=== PATIENT | male | born 1980 | race Caucasian/White ===

== ENCOUNTER 2017-02-02 21:00 | Inpatient (IN) | payer MEDICAID, OTHER ==
[2017-02-02 22:17] LABS: BASO % 0.1 % (0.0-2.0); EOS % 0.1 % (0.0-4.0); HEMATOCRIT 41.7 % (35.0-51.0); LYMPH # 0.7 K/uL (1.0-4.3); LYMPH % 11.7 % (20.0-40.0); MEAN CELL VOLUME 88.8 fl (80.0-94.0); MEAN CORPUSCULAR HEMOGLOBIN 30.5 pg (27.0-31.0); MEAN CORPUSCULAR HGB CONC 34.3 g/dL (33.0-37.0); MONO # 0.5 K/uL (0.0-0.8); MONO % 7.4 % (0.0-10.0); NEUT % 80.7 % (50.0-75.0); NRBC % 0.2 % (0.0-0.0); RED CELL DISTRIBUTION WIDTH 13.3 % (11.5-14.5); WHITE BLOOD COUNT 6.1 K/uL (4.8-10.8)
[2017-02-02 22:28] LABS: ALB/GLOB RATIO 1.4 (1.0-2.1); ALCOHOL SERUM < 10 mg/dl (0-10); ALKALINE PHOSPHATASE 112 U/L (38-126); ALT/SGPT 134 U/L (21-72); AST/SGOT 199 U/L (17-59); BILIRUBIN,TOTAL 0.8 mg/dl (0.2-1.3); BLOOD UREA NITROGEN 11 mg/dl (9-20); CALCIUM 8.9 mg/dL (8.4-10.2); CARBON DIOXIDE 26 mmol/L (22-30); CHLORIDE 102 mmol/L (98-107); GFR AFRICAN-AMERICAN > 60; GLUCOSE,RANDOM 120 mg/dL (75-110); POTASSIUM 3.7 MMOL/L (3.6-5.0); SODIUM 144 mmol/l (132-148); TOTAL PROTEIN 7.7 G/DL (6.3-8.2)
--- NOTE | 2017-02-02 22:50 | ED PDOC ---
HPI: Psych/Substance Abuse Time Seen by Provider: 02/02/17 21:07 Chief Complaint (Nursing): Psychiatric Evaluation Chief Complaint (Provider): Auditory Hallucinations and Headache History Per: Patient History/Exam Limitations: no limitations Onset/Duration Of Symptoms: Days (x1 week) Current Symptoms Are (Timing): Still Present Associated Symptoms: denies: Suicidal Thoughts, Suicidal Plan Additional Complaint(s): Coleman Neal , a 36 year old male, with a past medical history of possible psychotic disorder presents to the ED complaining of auditory hallucinations and headache x1 week. The patient states that for the past week he has been hearing male voices saying that they are going to kill him but he denies homicidal and suicidal ideation. Patient admits to consuming one beer today but denies drug use. He reports that he was admitted to [facility] for similar presentations and did not follow up with a psychiatrist. Past Medical History Reviewed: Historical Data, Nursing Documentation, Vital Signs Vital Signs: Last Vital Signs Temp 100 F H 02/02/17 21:01 Pulse 124 H 02/02/17 21:01 Resp 20 02/02/17 21:01 BP 175/110 H 02/02/17 21:01 Pulse Ox 96 02/02/17 21:01 - Medical History Other PMH: Possible Psychotic Disorder - Surgical History Other surgeries: left rib surgery - Family History Family History: States: Unknown Family Hx - Social History Current smoker - smoking cessation education provided: No Alcohol: Occasional Drugs: Denies - Allergies Allergies/Adverse Reactions: Allergies Allergy/AdvReac Type Severity Reaction Status Date / Time No Known Allergies Allergy Verified 02/02/17 21:01 Review of Systems Psych: Positive for: Other (Auditory hallucinations). Negative for: Suicidal ideation Physical Exam - Reviewed Nursing Documentation Reviewed: Yes Vital Signs Reviewed: Yes - Physical Exam Appears: Positive for: Non-toxic, No Acute Distress Head Exam: Positive for: ATRAUMATIC, NORMAL INSPECTION, NORMOCEPHALIC Skin: Positive for: Normal Color, Warm, Dry. Negative for: Rash Eye Exam: Positive for: Normal appearance, EOMI, PERRL. Negative for: Nystagmus ENT: Positive for: Normal ENT Inspection. Negative for: Nasal Congestion, Tonsillar Exudate Neck: Positive for: Normal, Painless ROM, Supple Cardiovascular/Chest: Positive for: Regular Rate, Rhythm, Chest Non Tender. Negative for: Tachycardia Respiratory: Positive for: Normal Breath Sounds. Negative for: Wheezing, Respiratory Distress Gastrointestinal/Abdominal: Positive for: Normal Exam, Bowel Sounds, Soft. Negative for: Tenderness, Guarding, Rebound Back: Positive for: Normal Inspection. Negative for: L CVA Tenderness, R CVA Tenderness Extremity: Positive for: Normal ROM. Negative for: Tenderness, Deformity, Swelling Neurologic/Psych: Positive for: Alert, Oriented, Mood/Affect (Internally Preoccupied) - Laboratory Results Result Diagrams: 02/02/17 22:12 02/02/17 22:12 - ECG O2 Sat by Pulse Oximetry: 96 (RA) Pulse Ox Interpretation: Normal Medical Decision Making Medical Decision Makin Initial Impression: 36 y/o male presenting with auditory hallucinations in setting of possible psychotic break Initial Plan: * CT Head w/o Contrast * EKG * Alcohol Serum * CMP * Drug Screen * Crisis Evaluation * Udip * CBC * Ativan 2mg IM * Librium 50mg PO * 1:1 Observation * Reevaluation Time: 23:10 Clinical Impression: Psychotic disorder with alcohol dependence --Labs were viewed with no clinically significant findings. --Ativan 2mg IM ordered --Evaluated by crisis and will be admitted for further treatment --Patient is medically stable for psychiatric admission under Dr. Maldonado CT HEAD FINDINGS: Brain: Tiny calcification in the left basal ganglia.Streak artifact limits evaluation of the skull base. No evidence of acute intracranial hemorrhage. Correlate clinically. No significant white matter disease. No edema.Mild bifrontal atrophy is noted. Ventricles: Unremarkable. No ventriculomegaly. Bones/joints: See above. Soft tissues: Unremarkable. Sinuses: Unremarkable as visualized. No acute sinusitis. Mastoid air cells: Unremarkable as visualized. No mastoid effusion. IMPRESSION: Streak artifact limits evaluation of the skull base. No evidence of acute intracranial hemorrhage. Correlate clinically. Time: 22:35 --Chest XR shows no acute disease. Scribe Attestation Documented by Soha Pryor and Ambrocio Stout, acting as a scribe for Daisy Palencia MD. Provider Attestation All medical record entries made by the Scribe were at my direction and personally dictated by me. I have reviewed the chart and agree that the record accurately reflects my personal performance of the history, physical exam, medical decision making, and the department course for this patient. I have also personally directed, reviewed, and agree with the discharge instructions and disposition. Disposition - Clinical Impression Clinical Impression: Psychotic disorder, Alcohol dependence - Patient ED Disposition Is Patient to be Admitted: Yes - Disposition Disposition: Discharged to Psych Hospital Disposition Time: 22:39 Condition: STABLE - Pt Status Changed To: Hospital Disposition Of: Inpatient - Admit Certification Admit to Inpatient:: After my assessment, the patient will require hospitalization for at least two midnights. This is because of the severity of symptoms shown, intensity of services needed, and/or the medical risk in this patient being treated as an outpatient. - POA Present On Arrival: None
[2017-02-03 00:54] VITALS: O2SAT 98
[2017-02-03] MEDS ORDERED: Alum-Mag Hydrox-Simethicone Susp (30 mL) PO PRN (01:43)
[2017-02-03] MEDS ORDERED: Magnesium Hydroxide Susp 30 ml UD PO PRN (01:43)
[2017-02-03] MEDS ORDERED: DiphenhydrAMINE 50 mg/ml Inj IM PRN (01:43)
--- NOTE | 2017-02-03 02:53 | PCM.BM ---
<Aldo Deleon J - Last Filed: 02/03/17 02:50> Treatment Plan Problems - Problems identified on initial assessmt Knowledge Deficit: Alcohol Use Date Initiated: 02/03/17 Time Initiated: 02:51 Assessment reference: NA Status: Active Treatment assets and liabiliti Patient Assests: cooperative, motivated, physically healthy, negotiates basic needs Patient Liabilities: poor support system, substance abuse, language/speech ( speaks only Burkinan and has first grade education. Poor read/write) - Milieu Protocol Maintain good personal hygiene: daily Remind patient to perform daily oral care , every other day Encourage regular showers, other Assist patient to perform ADL 's (if needed) Conduct patient checks and document Observation sheet: Q15 minutes Maintain personal safety: every shift Educate patient to report safety concerns to staff, every shift Monitor environment for contraband/sharps Medication safety: Monitor for expected outcome, potential side effects: every shift, Assess barriers to learning: every shift, Assess readiness for medication education: every shift <Kathrin Maldonado - Last Filed: 02/03/17 11:10> - Diagnosis (1) Psychotic disorder Status: Acute Interventions: Medication management, Individual and group therapy, Psychoeducation 02/03/17 11:10 (2) Alcohol dependence Status: Acute Interventions: Medication management, Individual and group therapy, Psychoeducation 02/03/17 11:11 <Bharti Castellanos - Last Filed: 02/07/17 12:00> Treatment assets and liabiliti Patient Assests: adapts well, cooperative, motivated, self-reliant, ADL independent, physically healthy, negotiates basic needs, cognitively intact, good interpersonal skills Patient Liabilities: live alone, substance abuse Family Contact Family involvement: Family/SO is involved Family contact: Patient agrees to contact, Family has been contacted by patient , Telephone contact initiated by staff Family contact name: Amber(daughter)([phone]) Family contacted how many times per week?: 1 Family contact comment: [employer] Knitting Machine Operator placed call to patients daughter to discuss patients progress on 3NP, anticipated discharge of 02/07 and aftercare. Patients daughter denies having seen patient in the condition he was in prior to admission. Patients daughter reports patient struggles with his ETOH intake and depression but denies knowing of prior psychotic episodes. [employer] Knitting Machine Operator provided psychoeducation regarding importance of compliance with aftercare to reduce risk of future hospitalizations and ensure saftey in the community. Patients daughter expressed understanding of the above and denied concerns regardig discharge or patients return home. - Outside Agency Agency 1 Care involvment: Other Agency contact name: [facility]/ [facility] Orestes Pizano Agency contact number: [phone] - Goals for Treatment Patient goals for treatment: Patient to continue stabilization on 3NP through medication management and group/supportive therapy. Patient encouraged to attend group regularly to promote self-awareness, sobriety and improve insight, coping skills and self-esteem. Psychoeducation provided to emphasize importance of compliance with aftercare/medication management to reduce risk of future hospitalizations and ensure max. functioning in the community. Discharge/Continuing Care - Education Needs Education Needs: Family Medication, Family Diagnosis/Disease Process, Family Coping Skills, Family Community resources, Family Aftercare Safety Plan, Patient Medication, Patient Diagnosis/Disease Process, Patient Coping Skills, Patient Community resources, Patient Aftercare Safety Plan - Discharge Discharge Criteria: Tolerates medication w/o severe side effects, Free of Suicidal thoughts, Free of paranoid thoughts, Free of agitation, Normal sleep pattern, Ability to care for self, No longer exhibiting s/s of withdrawal Discharge to:: Home, Other - Treatment Team Participation Patient/Family/SO Statement: 02/07/17 11:59 Patient reports improvement in mood since admission and denies AH/VH or SI/HI since admission. Patient expresses motivation for treatment upon discharge in order to reduce risk of future hospitalizations and maintain sobriety. Patient presents with brighter affect than upon admission. No harmful behaviors noted. Discussed with Family/SO: Yes
--- NOTE | 2017-02-03 08:37 | CT ---
PROCEDURE: CT HEAD WITHOUT CONTRAST. HISTORY: headache COMPARISON: None available. TECHNIQUE: Axial computed tomography images were obtained through the head/brain without intravenous contrast. Radiation dose: Total exam DLP = 812.72 mGy-cm. This CT exam was performed using one or more of the following dose reduction techniques: Automated exposure control, adjustment of the mA and/or kV according to patient size, and/or use of iterative reconstruction technique. FINDINGS: HEMORRHAGE: No intracranial hemorrhage. BRAIN: Normal zurita-white matter differentiation and density are appreciated throughout the cerebrum cerebellum and brainstem. There is no mass effect. There is no suspicious extra-axial fluid collection in the midline brain anatomy appears diffusely unremarkable. VENTRICLES: Unremarkable. No hydrocephalus. CALVARIUM: Unremarkable. PARANASAL SINUSES: Unremarkable as visualized. No significant inflammatory changes. MASTOID AIR CELLS: Unremarkable as visualized. No inflammatory changes. OTHER FINDINGS: None. IMPRESSION: Normal CT of the Head. Concordant report from [facility], 02/02/2017.
--- NOTE | 2017-02-03 11:13 | PCM.PSYCH ---
Initial Psychiatric Evaluation - Initial Psychiatric Evaluation Type of Admission: Voluntary Legal Status: Capacity Chief Complaint (in patient's own words): "I'm hearing voices saying they will kill me." Patient's Reaction to Hospitalization: HPI: 36 yo male w/ no known past medical history presents with worsening psychosis and bizarre behavior. Patient is a poor historian due to acute psychosis and disorganization, but he does reports that he is hearing voices stating that they will kill him. He denies suicidal or homicidal ideation. He also reports paranoia that people are after him, trying to watch him through the door and windows. He denies current depression/anxiety. A + O x 3. Patient reports that he drinks, but was vague about how much and stated that he does not drink etoh daily. He denies current tremors. Collateral from ER: Clinician contacted the patients daughter Amber Cee [phone] who reported that a few days the patient went to [facility], stayed in the ED and was discharged. That patient is not eating nor sleeping at least for a week. He appeared confused, complaining of headaches, ear aches, and voices. The voices is telling him that they will kill him. He sees people in the room that nobody can see. That he wants to run away from the voices because he is fearful that they going to hurt him. He reported drinking a large cane of beer today and sueros electrolytes drinks. His last alcohol binge was three days ago. She advocates for his father to be hospitalized and treated. She denied any psychiatric disorder in the family in [facility] or in [facility]. 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 Denies illicit drug use, +ETOH use. Current Medications: Active Medications Generic Name Dose Route Start Last Admin Trade Name Freq PRN Reason Stop Dose Admin Acetaminophen 650 mg 02/03/17 01:43 Tylenol 325mg Tab PO Q4 PRN T>101;headache;pain 1-7 Al Hydrox/Mg Hydrox/Simethicone 30 ml 02/03/17 01:43 Maalox Plus 30 Ml PO Q4 PRN Dyspepsia Diphenhydramine HCl 50 mg 02/03/17 01:43 02/03/17 03:37 Benadryl IM 50 mg Q6 PRN Administration Extrapyramidal S/S Unable PO Diphenhydramine HCl 50 mg 02/03/17 01:43 Benadryl PO Q6 PRN Extrapyramidal Symptoms Diphenhydramine HCl 50 mg 02/03/17 01:58 Benadryl PO HS PRN Sleep Folic Acid 1 mg 02/03/17 09:00 Folic Acid PO DAILY BEN Haloperidol 5 mg 02/03/17 01:43 Haldol PO Q4 PRN Agitation Haloperidol Lactate 5 mg 02/03/17 01:43 02/03/17 03:37 Haldol IM 5 mg Q4 PRN Administration Agitation, Unable to Take PO Lorazepam 2 mg 02/03/17 01:43 02/03/17 03:36 Ativan IM 2 mg Q4 PRN Administration Anxiety/Agitation,Unable PO Lorazepam 2 mg 02/03/17 01:43 Ativan PO Q4 PRN Anxiety/Agitation Lorazepam 1 mg 02/03/17 09:00 Ativan PO TID BEN Magnesium Hydroxide 30 ml 02/03/17 01:43 Milk Of Magnesia PO HS PRN Constipation Multivitamins/Minerals 1 tab 02/03/17 09:00 Therapeutic-M Tab PO DAILY [facility] Risperidone 1 mg 02/03/17 21:00 Risperdal Tab PO Q12 [facility] Thiamine HCl 100 mg 02/03/17 09:00 Vitamin B1 Tab PO DAILY BEN Past Psychiatric History - Past Psychiatric History Previous Treatment History: None Pertinent Medical Hx (Current Medical&Sleep Prob, Allergies): Allergies Allergy/AdvReac Type Severity Reaction Status Date / Time No Known Allergies Allergy Verified 02/02/17 21:01 Review of Systems - Psychiatric Psychiatric: As Per HPI, Abnormal Sleep Pattern, Auditory Hallucinations, Behavioral Changes, Change in Appetite, Hallucinations, Mood Swings, Visual Hallucinations Mental Status Examination - Personal Presentation Personal Presentation: Looks stated age - Affect Affect: Constricted - Motor Activity Motor Activity: Calm - Reliability in Providing Information Reliability in Providing Information: Poor, due to alteration in thoughts - Speech Speech: Coherent - Mood Mood: Anxious - Formal Thought Process Formal Thought Process: Hallucinations, Delusions, Paranoia - Hallucinations/Delusions Hallucinations: Auditory Additional comments: +AH - Obsessions/Compulsions Obsessions: No Compulsions: No - Cognitive Functions Orientation: Person, Place, Time Sensorium: Alert Attention/Concentration: Attentive Judgement: Imparied, as evidence by: Lack of insight into illness Memory: Recent intact, as evidence by: Ability to recall events of the day, Remote intact, as evidenced by: Abilit to recall sig. life events, Remote intact , as evidenced by: Ability to recall historical events - Risk Risk: Diminished functioning - Strength & Assets Inventory Strength & Assets Inventory: Family support, Cooperative DSM 5 DX - DSM 5 DSM 5 Diagnosis: Psychosis unspecified r/o schizophrenia; Alcohol Use Disorder - Recommended/Plan of Treatment Treatment Recommendations and Plan of Treatment: Psychosis unspecified r/o schizophrenia; Alcohol Use Disorder; patient need acute inpatient admission for treatment and safety -Admit to psychiatry -Start Risperdal 1 mg PO HS and titrate daily -Individual and group therapy -Obtain collateral history -Ativan for ETOH w/drawal; will taper daily; no current signs/symptoms of ETOH w /drawal -Disposition planning Projected ELOS: 5-7 days Discharge Plan and Discharge Criteria: Discharge when psychiatrically stable
--- NOTE | 2017-02-03 11:43 | RAD ---
HISTORY: admit COMPARISON: No prior. FINDINGS: LUNGS: No active pulmonary disease. PLEURA: No pneumothorax or right pleural effusion identified. Minimal left pleural effusion difficult to completely exclude. Consider follow-up PA and lateral radiography when feasible. CARDIOVASCULAR: Normal. OSSEOUS STRUCTURES: No significant abnormalities. VISUALIZED UPPER ABDOMEN: Normal. OTHER FINDINGS: None. IMPRESSION: Potential minimal left pleural effusion. None is seen the right. No infiltrates bilaterally. Follow-up chest radiograph in is recommended with patient in PA and lateral views when feasible. GoNo active disease.
--- NOTE | 2017-02-03 12:05 | CARD ---
APPROVED REPORT EKG Measurement Heart [id number] <Conclusion> Sinus tachycardia Left axis deviation
[2017-02-03] MEDS: Multivitamin With Minerals Tab PO SCH (14:03)
--- NOTE | 2017-02-03 16:54 | CP.PCM.CON ---
History of Present Illness - History of Present Illness History of Present Illness: 36 yo male with history of psychosis admitted because of worsening bizarre behaviour and hearing hearing voices. Review of Systems - Review of Systems All systems: reviewed and no additional remarkable complaints except (aside from those mentioned above, 12 point system review were negative by me) Past Patient History - Tetanus Immunizations Tetanus Immunization: Unknown - Past Social History Smoking Status: Unknown If Ever Smoked Alcohol: Occasional Drugs: Denies - CARDIAC Hx Cardiac Disorders: No Hx Hypertension: No - PULMONARY Hx Respiratory Disorders: No Hx Tuberculosis: No - NEUROLOGICAL Hx Neurological Disorder: No HX Cerebrovascular Accident: No Hx Seizures: No - HEENT Hx HEENT Problems: No - RENAL Hx Chronic Kidney Disease: No - ENDOCRINE/METABOLIC Hx Endocrine Disorders: No - HEMATOLOGICAL/ONCOLOGICAL Hx Blood Disorders: No Hx Cancer: No Hx Human Immunodeficiency Virus (HIV): No - INTEGUMENTARY Hx Dermatological Problems: No - MUSCULOSKELETAL/RHEUMATOLOGICAL Hx Musculoskeletal Disorders: No - GASTROINTESTINAL Hx Constipation: Yes (c/o) - GENITOURINARY/GYNECOLOGICAL Hx Genitourinary Disorders: No Hx Sexually Transmitted Disorders: No - PSYCHIATRIC Hx Substance Use: No - SURGICAL HISTORY Hx Surgeries: Yes Other/Comment: Hx rib surgery (procedure unknown) - ANESTHESIA Hx Anesthesia: Yes Hx Anesthesia Reactions: No Hx Malignant Hyperthermia: No Meds Allergies/Adverse Reactions: Allergies Allergy/AdvReac Type Severity Reaction Status Date / Time No Known Allergies Allergy Verified 02/02/17 21:01 - Medications Medications: Current Medications Acetaminophen (Tylenol 325mg Tab) 650 mg PO Q4 PRN PRN Reason: T>101;headache;pain 1-7 Al Hydrox/Mg Hydrox/Simethicone (Maalox Plus 30 Ml) 30 ml PO Q4 PRN PRN Reason: Dyspepsia Diphenhydramine HCl (Benadryl) 50 mg IM Q6 PRN PRN Reason: Extrapyramidal S/S Unable PO Last Admin: 02/03/17 03:37 Dose: 50 mg Diphenhydramine HCl (Benadryl) 50 mg PO Q6 PRN PRN Reason: Extrapyramidal Symptoms Diphenhydramine HCl (Benadryl) 50 mg PO HS PRN PRN Reason: Sleep Folic Acid (Folic Acid) 1 mg PO DAILY BEN Last Admin: 02/03/17 14:03 Dose: 1 mg Haloperidol (Haldol) 5 mg PO Q4 PRN PRN Reason: Agitation Haloperidol Lactate (Haldol) 5 mg IM Q4 PRN PRN Reason: Agitation, Unable to Take PO Last Admin: 02/03/17 03:37 Dose: 5 mg Lorazepam (Ativan) 2 mg IM Q4 PRN PRN Reason: Anxiety/Agitation,Unable PO Last Admin: 02/03/17 03:36 Dose: 2 mg Lorazepam (Ativan) 2 mg PO Q4 PRN PRN Reason: Anxiety/Agitation Lorazepam (Ativan) 1 mg PO TID [facility] Last Admin: 02/03/17 14:03 Dose: 1 mg Magnesium Hydroxide (Milk Of Magnesia) 30 ml PO HS PRN PRN Reason: Constipation Multivitamins/Minerals (Therapeutic-M Tab) 1 tab PO DAILY [facility] Last Admin: 02/03/17 14:03 Dose: 1 tab Risperidone (Risperdal Tab) 1 mg PO Q12 [facility] Thiamine HCl (Vitamin B1 Tab) 100 mg PO DAILY [facility] Last Admin: 02/03/17 14:03 Dose: 100 mg Physical Exam - Constitutional Appears: No Acute Distress - Head Exam Head Exam: ATRAUMATIC - Eye Exam Eye Exam: PERRL - ENT Exam ENT Exam: Mucous Membranes Moist - Neck Exam Neck exam: Negative for: Meningismus - Respiratory Exam Respiratory Exam: absent: Rhonchi, Wheezes, Respiratory Distress - Cardiovascular Exam Cardiovascular Exam: REGULAR RHYTHM, +S1, +S2 - GI/Abdominal Exam GI & Abdominal Exam: Soft. absent: Tenderness - Rectal Exam Rectal Exam: Deferred - Neurological Exam Neurological exam: Alert - Skin Skin Exam: Dry, Intact Results - Vital Signs Recent Vital Signs: Last Vital Signs Temp 98.9 F 02/03/17 00:52 Pulse 96 H 02/03/17 01:39 Resp 18 02/03/17 01:39 BP 140/89 02/03/17 00:52 Pulse Ox 98 02/03/17 00:52 - Labs Result Diagrams: 02/02/17 22:12 02/02/17 22:12 Labs: Laboratory Results - last 24 hr 02/02/17 02/02/17 02/02/17 22:12 22:12 22:12 WBC 6.1 RBC 4.69 Hgb 14.3 Hct 41.7 MCV 88.8 MCH 30.5 MCHC 34.3 RDW 13.3 Plt Count 83 L MPV 10.0 Neut % (Auto) 80.7 H Lymph % (Auto) 11.7 L [place] % (Auto) 7.4 Eos % (Auto) 0.1 Baso % (Auto) 0.1 Neut # 5.0 Lymph # 0.7 L [place] # 0.5 Eos # 0.0 Baso # 0.0 Sodium 144 Potassium 3.7 Chloride 102 Carbon Dioxide 26 Anion Gap 20 BUN 11 Creatinine 0.9 Est GFR ( Amer) > 60 Est GFR (Non-Af Amer) > 60 Random Glucose 120 H Calcium 8.9 Total Bilirubin 0.8 AST 199 H ALT 134 H Alkaline Phosphatase 112 Total Protein 7.7 Albumin 4.5 Globulin 3.2 Albumin/Globulin Ratio 1.4 Urine Opiates Screen Negative Urine Methadone Screen Negative Ur Barbiturates Screen Negative Ur Phencyclidine Scrn Negative Ur Amphetamines Screen Negative U Benzodiazepines Scrn Negative U Oth Cocaine Metabols Negative U Cannabinoids Screen Negative Alcohol, Quantitative < 10 Assessment & Plan (1) Psychotic disorder Status: Acute Comment: psyche is managing
[2017-02-04] MEDS: Multivitamin With Minerals Tab PO SCH (10:35)
--- NOTE | 2017-02-04 11:55 | PCM.PYCHPN ---
Psychiatric Progress Note - Psychiatric Progress Note Patient seen today, length of contact: Patient evaluated, case discussed w/ staff, chart reviewed Patient Chief Complaint: "I'm not hearing voices anymore" Problems Identified/Issues Discussed: Patient is more organized, engaging more appropriately with others. He is less paranoid and feels comfortable sleeping in his assigned hospital bed today. He denies current AH; reports he last heard CAH to harm himself yesterday. He denies ideation/plan/intent to harm himself or others. Medication Change: Yes (Taper Ativan, Increase Risperdal to 1 mg PO Q12 hr) Medical Record Reviewed: Yes Consults ordered or reviewed: Medicine consult appreciated Mental Status Examination - Cognitive Function Orientation: Person, Place, Time Memory: Intact Attention: WNL Concentration: WNL Association: WNL Fund of Knowledge: [facility] Decription of patient's judgement and insights: Improving I/J - Mood Mood: Anxious - Affect Affect: Constricted - Formal Thought Process Formal Thought Process: Hallucinations (Last had CAH yesterday), Paranoia Psychotic Thoughts and Behaviors: +Recent, but no current AH; +paranoia - Suicidal Ideation Suicidal Ideation: No - Homicidal Ideation Homicidal Ideation: No Goal/Treatment Plan - Goal/Treatment Plan Need for Continued Stay: Remain at risks for inpatient hospitalization, Discharge may exacerbated symptoms Progress Toward Problem(s) and Goals/Treatment Plan: Psychosis unspecified, r/o schizophrenia, r/o alcohol induced psychotic disorder ; Alcohol Use Disorder; patient needs acute inpatient admission for treatment and safety -Increase Risperdal to 1 mg PO Q12 -Individual and group therapy -Obtain collateral history -Ativan for ETOH w/drawal; will taper daily; no current signs/symptoms of ETOH w /drawal -Disposition planning -Medicine consult appreciated Estimated Date of D/C: 02/07/17
[2017-02-05] MEDS: Multivitamin With Minerals Tab PO SCH (08:30)
--- NOTE | 2017-02-05 11:27 | PCM.PYCHPN ---
Psychiatric Progress Note - Psychiatric Progress Note Patient seen today, length of contact: discussed with team Patient Chief Complaint: i feel good Problems Identified/Issues Discussed: pt denies any hallucinations. he is now socializing more and attending groups. he denies any withdrawal symptoms. Medication Change: Yes ( lower ativan) Medical Record Reviewed: Yes Mental Status Examination - Cognitive Function Orientation: Person, Place, Time Memory: Intact Attention: WNL Concentration: WNL Association: WNL Fund of Knowledge: [facility] Decription of patient's judgement and insights: fair - Mood Mood: Anxious - Affect Affect: Constricted - Formal Thought Process Formal Thought Process: Hallucinations (Last had CAH yesterday), Paranoia - Suicidal Ideation Suicidal Ideation: No - Homicidal Ideation Homicidal Ideation: No Goal/Treatment Plan - Goal/Treatment Plan Need for Continued Stay: Remain at risks for inpatient hospitalization, Discharge may exacerbated symptoms Progress Toward Problem(s) and Goals/Treatment Plan: alcohol dependence psychotic disorder unspecified will lower ativan- should be discontinued after tomorrow refer to outpt treatment continue other medications Estimated Date of D/C: 02/07/17
[2017-02-05 16:03] VITALS: RESP 18
[2017-02-06] MEDS: Multivitamin With Minerals Tab PO SCH (09:48)
--- NOTE | 2017-02-06 11:39 | PCM.PYCHPN ---
Psychiatric Progress Note - Psychiatric Progress Note Patient seen today, length of contact: Patient evaluated, case discussed with team, chart reviewed Patient Chief Complaint: "I'm feeling better" Problems Identified/Issues Discussed: Patient has improved clinically, is organized on conversation, denies paranoia or hallucinations. Denies depression/anxiety. Denies ideation to harm self or others. Denied adverse effects to medications. Psychoeducation provided re: alcohol abuse and the importance of outpatient follow-up. Medication Change: Yes (Stop Ativan) Medical Record Reviewed: Yes Mental Status Examination - Cognitive Function Orientation: Person, Place, Time Memory: Intact Attention: WNL Concentration: WNL Association: WN Fund of Knowledge: [facility] Decription of patient's judgement and insights: Improved I/J - Mood Mood: Neutral - Affect Affect: Broad - Formal Thought Process Psychotic Thoughts and Behaviors: NO AH/VH/paranoia/delusions - Suicidal Ideation Suicidal Ideation: No - Homicidal Ideation Homicidal Ideation: No Goal/Treatment Plan - Goal/Treatment Plan Need for Continued Stay: Remain at risks for inpatient hospitalization, Discharge may exacerbated symptoms Progress Toward Problem(s) and Goals/Treatment Plan: Psychosis unspecified, r/o schizophrenia, r/o alcohol induced psychotic disorder ; Alcohol Use Disorder; patient has improved clinically and will likely be discharged tomorrow if he continues to improve clinically. -Continue Risperdal 1 mg PO Q12 -Individual and group therapy -Stop Ativan, no signs/symptoms of ETOH w/drawal -Disposition planning -Medicine consult appreciated Estimated Date of D/C: 02/07/17
--- NOTE | 2017-02-07 08:31 | PCM.PYCHDC ---
Mental Status Examination - Mental Status Examination Orientation: Person, Place, Situation, Time Memory: Intact Mood: Neutral Affect: Broad Speech: Appropriate Attention: WNL Concentration: WNL Association: WNL Fund of Knowledge: WNL Formal Thought Process: No Impairment Description of patient's judgement and insight: Good I/J Psychotic Thoughts and Behaviors: NO AH/VH/paranoia/delusions Suicidal Ideation: No Current Homicidal Ideation?: No Discharge Summary - Discharge Note Reason for Hospitalization: HPI: 36 yo male w/ no known past medical history presents with worsening psychosis and bizarre behavior. Patient is a poor historian due to acute psychosis and disorganization, but he does reports that he is hearing voices stating that they will kill him. He denies suicidal or homicidal ideation. He also reports paranoia that people are after him, trying to watch him through the door and windows. He denies current depression/anxiety. A + O x 3. Patient reports that he drinks, but was vague about how much and stated that he does not drink etoh daily. He denies current tremors. Collateral from ER: Clinician contacted the patients daughter Amber Cee [phone] who reported that a few days the patient went to [facility], stayed in the ED and was discharged. That patient is not eating nor sleeping at least for a week. He appeared confused, complaining of headaches, ear aches, and voices. The voices is telling him that they will kill him. He sees people in the room that nobody can see. That he wants to run away from the voices because he is fearful that they going to hurt him. He reported drinking a large cane of beer today and sueros electrolytes drinks. His last alcohol binge was three days ago. She advocates for his father to be hospitalized and treated. She denied any psychiatric disorder in the family in [facility] or in [facility]. 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 Denies illicit drug use, +ETOH use. Consultations:: List each consultation separately and include: 1. Reason for request. 2. Findings. 3. Follow-up Consultations: Medicine consult appreciated Summary of Hospital Course include:: 1. Description of specific treatment plan utilized for patients during their course of treatmen. 2. Summarize the time- course for resolution of acute symptoms and/or regressed behaviors. 3. Describe issues identified and worked on during hospitalization. 4. Describe medication utilized. 5. Describe medical problems identified and treated. 6. Reassessment of suicide risk Summary of Hospital Course: Patient was admitted to the psychiatry unit. He was treated for alcohol withdrawal with Ativan, which was tapered and stopped over several days. He was also started on Risperdal for acute psychosis/ paranoia, which has now resolved. Patient denies current depression/anxiety/psychosis/paranoia/SI/HI. He is currently psychiatrically stable for discharge. Patient was counseled on the importance of compliance with follow-up treatment and the dangers of alcohol abuse. - Diagnosis (1) Psychotic disorder Current Visit: Yes Status: Acute (2) Alcohol dependence Current Visit: Yes Status: Acute - Final Diagnosis (DSM 5) Condition upon Discharge: STABLE DSM 5: Psychosis unspecified, Alcohol Use Disorder Disposition: HOME/ ROUTINE Follow-up Treatment Plan: Psychosis unspecified, Alcohol Use Disorder; patient is psychiatrically stable for discharge. -Continue Risperdal 1 mg PO Q12 -Individual and group therapy -Ativan stopped yesterday, no signs/symptoms of ETOH w/drawal -Discharge w/ outpatient follow-up -Medicine consult appreciated Prescriptions/Medication Reconciliation: risperiDONE [RisperDAL Tab] 1 mg PO Q12 #60 tab - Smoking Cessation Smoking Cessation Medication prescribed: No Reason for not providing: Not indicated - Antipsychotic Medications Pt discharged on 2 or more routine antipsychotic medications: No
[2017-02-07] MEDS: Multivitamin With Minerals Tab PO SCH (08:39)
[2017-02-07 09:26] VITALS: BP 124/81; PULSE 82; TEMP 96.8
== END 2017-02-07 11:51 | disposition home or self-care (01) | DRG 885 ==
LOC: H.ER 21:00 → H.ERHOLD 22:39 → H.PSYCH 02-03 01:17
PROVIDERS: ADMIT Psychiatry & Neurology Psychiatry; ATTEND Psychiatry & Neurology Psychiatry
PROC: GZHZZZZ Group Psychotherapy (ICD-10-PCS; principal; 2017-02-02)
PROC: GZ58ZZZ Individual Psychotherapy, Cognitive-Behavioral (ICD-10-PCS; 2017-02-02)
PROC: HZ52ZZZ Individual Psychotherapy for Substance Abuse Treatment, Cognitive-Behavioral (ICD-10-PCS; 2017-02-02)
DX: F23 Brief psychotic disorder (principal); F10.239 Alcohol dependence with withdrawal, unspecified